=== PATIENT | female | born 1950 | race Caucasian/White ===

== ENCOUNTER 2016-11-08 01:25 | Inpatient (IN) | payer OTHER, MEDICAID ==
[~2016-11-08] VITALS: Ht 121.9 cm; Wt 66.0 kg
[2016-11-08] VITALS (18 sets, daily range): BP systolic 83–141; BP diastolic 38–63
[2016-11-08 02:31] LABS: BASOPHIL % 0.4 % (0-2); PLATELET COUNT 384 x10^3mcL (130-400)
[2016-11-08 02:32] LABS: RED CELL DISTRIBUTION WIDTH 21.5 % (11.5-14.5)
[2016-11-08 02:33] LABS: CALCIUM 8.7 mg/dL (8.5-10.1); CARBON DIOXIDE 30.5 mmol/L (21-32); POTASSIUM SERUM 4.3 mmol/L (3.5-5.1)
[2016-11-08 02:40] LABS: ALBUMIN 2.5 g/dL (3.4-5.0); BILIRUBIN TOTAL 0.31 mg/dL (0.20-1.00); TOTAL PROTEIN, SERUM 7.5 g/dL (6.4-8.2)
[2016-11-08 02:59] LABS: rbc morphology (normal/abnorm) ABNORMAL (NORMAL)
[2016-11-08 06:10] LABS: MAGNESIUM 2.4 mg/dL (1.8-2.4)
[2016-11-08 06:16] LABS: CHOLESTEROL/HDL RATIO 2.4
[2016-11-08 06:20] LABS: T3 TOTAL 0.82 ng/mL
[2016-11-08 06:43] LABS: FREE T4 1.84 ng/dL (0.76-1.46); FREE THYROXINE INDEX 3.8 ug/dL (1.4-4.5)
[2016-11-08 07:06] LABS: BASOPHIL % 0.6 % (0-2); PLATELET COUNT 367 x10^3mcL (130-400)
[2016-11-08 07:20] LABS: RED CELL DISTRIBUTION WIDTH 21.3 % (11.5-14.5)
[2016-11-08 07:28] LABS: UA SPECIFIC GRAVITY <=1.005 (1.005-1.035); microscopic required? YES; urine erythrocyte 1+ (NEGATIVE)
[2016-11-08 08:23] LABS: rbc morphology (normal/abnorm) ABNORMAL (NORMAL)
[2016-11-08] MEDS ORDERED: EPO10I IV (10:56)
[2016-11-08] MEDS ORDERED: FERROUS SULFAT325 M2 GT (10:57)
[2016-11-08] MEDS ORDERED: LEVEMIR100 U/M1 SC (10:57)
[2016-11-08] MEDS ORDERED: ASPIR 8181 MG GT (10:57)
[2016-11-08] MEDS ORDERED: XARELTO10 M1 GT (10:58)
[2016-11-08] MEDS ORDERED: KEPPRA500 MG GT (10:59)
[2016-11-08] MEDS ORDERED: OMEPRAZOLE40 M1 PO (10:59)
[2016-11-08] MEDS ORDERED: SYNTHROID0.1 MG PO (11:00)
[2016-11-08] MEDS ORDERED: METFORMIN HCL500 MG PO (11:00)
[2016-11-09] VITALS (17 sets, daily range): BP systolic 84–141; BP diastolic 40–88
[2016-11-09 07:01] LABS: BASOPHIL % 0.8 % (0-2); PLATELET COUNT 345 x10^3mcL (130-400)
[2016-11-09 07:07] LABS: CARBON DIOXIDE 25.1 mmol/L (21-32); CHLORIDE SERUM 107 mmol/L (98-107); CREATININE SERUM 0.8 mg/dL (0.6-1.0); GFR1 > 60 mL/min; GLUCOSE SERUM 124 mg/dL (74-106); MAGNESIUM 2.3 mg/dL (1.8-2.4); PHOSPHOROUS 3.3 mg/dL (2.5-4.9); POTASSIUM SERUM 3.8 mmol/L (3.5-5.1); SODIUM SERUM 139 mmol/L (136-145)
[2016-11-09 07:10] LABS: rbc morphology (normal/abnorm) ABNORMAL (NORMAL)
[2016-11-10] VITALS (19 sets, daily range): BP systolic 91–143; BP diastolic 35–73
[2016-11-10 05:02] LABS: BASOPHIL % 0.5 % (0-2); PLATELET COUNT 332 x10^3mcL (130-400)
[2016-11-10 05:04] LABS: RED CELL DISTRIBUTION WIDTH 22.1 % (11.5-14.5)
[2016-11-10 05:19] LABS: CALCIUM 8.2 mg/dL (8.5-10.1); CARBON DIOXIDE 24.7 mmol/L (21-32); CHLORIDE SERUM 107 mmol/L (98-107); CREATININE SERUM 0.9 mg/dL (0.6-1.0); GFR1 > 60 mL/min; GLUCOSE SERUM 241 mg/dL (74-106); MAGNESIUM 2.5 mg/dL (1.8-2.4); PHOSPHOROUS 3.4 mg/dL (2.5-4.9); POTASSIUM SERUM 4.5 mmol/L (3.5-5.1); SODIUM SERUM 138 mmol/L (136-145)
[2016-11-10 05:20] LABS: ovalocyte/elliptocyte 1+; rbc morphology (normal/abnorm) ABNORMAL (NORMAL)
[2016-11-10 13:33] LABS: PLATELET COUNT 295 x10^3mcL (130-400)
[2016-11-10 14:06] LABS: RED CELL DISTRIBUTION WIDTH 22.3 % (11.5-14.5)
[2016-11-10 14:16] LABS: BAND NEUTROPHIL 2 % (0-10); MONOCYTE 12 % (0-7); SEGMENTED NEUTROPHILS 72 % (37-75); rbc morphology (normal/abnorm) ABNORMAL (NORMAL)
[2016-11-10 15:15] LABS: BILIRUBIN TOTAL 0.3 mg/dL (0.20-1.00); CALCIUM 8.3 mg/dL (8.5-10.1); CARBON DIOXIDE 26.4 mmol/L (21-32); POTASSIUM SERUM 4.1 mmol/L (3.5-5.1)
[2016-11-10 15:24] LABS: ALBUMIN 2.1 g/dL (3.4-5.0); TOTAL PROTEIN, SERUM 6.1 g/dL (6.4-8.2)
[2016-11-10 16:03] LABS: IRON 74 ug/dL (50-170)
[2016-11-10 16:05] LABS: TOTAL IRON BINDING CAPACITY 205 ug/dL (250-450)
[2016-11-10 19:40] LABS: RED BLOOD CELLS 2.01 M/mm3 (4.10-5.10)
[2016-11-11] VITALS (24 sets, daily range): BP systolic 83–155; BP diastolic 32–82
[2016-11-11 05:13] LABS: BASOPHIL % 0.3 % (0-2); PLATELET COUNT 273 x10^3mcL (130-400); RED CELL DISTRIBUTION WIDTH 18.5 % (11.5-14.5)
[2016-11-11 06:18] LABS: CALCIUM 8.3 mg/dL (8.5-10.1); CARBON DIOXIDE 27.1 mmol/L (21-32); MAGNESIUM 2.3 mg/dL (1.8-2.4); PHOSPHOROUS 3.2 mg/dL (2.5-4.9); POTASSIUM SERUM 4.3 mmol/L (3.5-5.1)
[2016-11-12] VITALS (16 sets, daily range): BP systolic 86–157; BP diastolic 26–75
[2016-11-12 04:41] LABS: BASOPHIL % 0.7 % (0-2); PLATELET COUNT 254 x10^3mcL (130-400)
[2016-11-12 04:43] LABS: RED CELL DISTRIBUTION WIDTH 18.7 % (11.5-14.5)
[2016-11-12 05:00] LABS: CALCIUM 8.4 mg/dL (8.5-10.1); CARBON DIOXIDE 24.7 mmol/L (21-32); MAGNESIUM 2.4 mg/dL (1.8-2.4); PHOSPHOROUS 2.8 mg/dL (2.5-4.9); POTASSIUM SERUM 4.3 mmol/L (3.5-5.1)
[2016-11-13] VITALS (17 sets, daily range): BP systolic 96–132; BP diastolic 33–416
[2016-11-13 04:50] LABS: BASOPHIL % 0.9 % (0-2); PLATELET COUNT 232 x10^3mcL (130-400)
[2016-11-13 04:55] LABS: RED CELL DISTRIBUTION WIDTH 18.7 % (11.5-14.5)
[2016-11-13 04:59] LABS: CALCIUM 8.7 mg/dL (8.5-10.1); CARBON DIOXIDE 28.1 mmol/L (21-32); CREATININE SERUM 1.1 mg/dL (0.6-1.0); POTASSIUM SERUM 4.5 mmol/L (3.5-5.1)
[2016-11-14] VITALS (17 sets, daily range): BP systolic 96–135; BP diastolic 34–75
[2016-11-14 05:43] LABS: BASOPHIL % 0.2 % (0-2); PLATELET COUNT 222 x10^3mcL (130-400)
[2016-11-14 05:44] LABS: CALCIUM 8.7 mg/dL (8.5-10.1); CARBON DIOXIDE 26.1 mmol/L (21-32); CREATININE SERUM 1.1 mg/dL (0.6-1.0); POTASSIUM SERUM 4.5 mmol/L (3.5-5.1); RED CELL DISTRIBUTION WIDTH 19.3 % (11.5-14.5)
[2016-11-15] VITALS (18 sets, daily range): BP systolic 81–140; BP diastolic 31–90
[2016-11-15 05:39] LABS: BASOPHIL % 0.5 % (0-2); PLATELET COUNT 195 x10^3mcL (130-400)
[2016-11-15 05:40] LABS: RED CELL DISTRIBUTION WIDTH 19.4 % (11.5-14.5)
[2016-11-15 05:47] LABS: CALCIUM 8.8 mg/dL (8.5-10.1); CARBON DIOXIDE 26.2 mmol/L (21-32); CREATININE SERUM 1.2 mg/dL (0.6-1.0); MAGNESIUM 2.2 mg/dL (1.8-2.4); PHOSPHOROUS 4.9 mg/dL (2.5-4.9); POTASSIUM SERUM 4.9 mmol/L (3.5-5.1)
[2016-11-16] VITALS (19 sets, daily range): BP systolic 96–153; BP diastolic 28–101
[2016-11-16 05:44] LABS: BASOPHIL % 0.8 % (0-2); PLATELET COUNT 178 x10^3mcL (130-400)
[2016-11-16 05:50] LABS: CALCIUM 8.6 mg/dL (8.5-10.1); CARBON DIOXIDE 24.3 mmol/L (21-32); CREATININE SERUM 1.2 mg/dL (0.6-1.0); MAGNESIUM 2.2 mg/dL (1.8-2.4); PHOSPHOROUS 4.5 mg/dL (2.5-4.9); POTASSIUM SERUM 4.6 mmol/L (3.5-5.1)
[2016-11-17] VITALS (18 sets, daily range): BP systolic 78–132; BP diastolic 28–81
[2016-11-17 05:05] LABS: CALCIUM 8.6 mg/dL (8.5-10.1); CARBON DIOXIDE 24.9 mmol/L (21-32); CREATININE SERUM 1.2 mg/dL (0.6-1.0); MAGNESIUM 2.2 mg/dL (1.8-2.4); PHOSPHOROUS 3.9 mg/dL (2.5-4.9); POTASSIUM SERUM 4.8 mmol/L (3.5-5.1)
[2016-11-17 05:08] LABS: BASOPHIL % 0.8 % (0-2); PLATELET COUNT 156 x10^3mcL (130-400)
[2016-11-18] VITALS (17 sets, daily range): BP systolic 90–133; BP diastolic 34–89
[2016-11-18 05:58] LABS: BASOPHIL % 0.7 % (0-2); PLATELET COUNT 176 x10^3mcL (130-400)
[2016-11-18 06:04] LABS: RED CELL DISTRIBUTION WIDTH 20.7 % (11.5-14.5)
[2016-11-18 06:20] LABS: CALCIUM 8.6 mg/dL (8.5-10.1); CARBON DIOXIDE 22.6 mmol/L (21-32); MAGNESIUM 2.3 mg/dL (1.8-2.4); POTASSIUM SERUM 4.6 mmol/L (3.5-5.1)
[2016-11-19] VITALS (16 sets, daily range): BP systolic 82–139; BP diastolic 29–62
[2016-11-19 05:37] LABS: BASOPHIL % 0.8 % (0-2); PLATELET COUNT 158 x10^3mcL (130-400)
[2016-11-19 06:02] LABS: CALCIUM 8.8 mg/dL (8.5-10.1); MAGNESIUM 2.1 mg/dL (1.8-2.4); PHOSPHOROUS 3.1 mg/dL (2.5-4.9); POTASSIUM SERUM 4.5 mmol/L (3.5-5.1)
[2016-11-20] VITALS (12 sets, daily range): BP systolic 93–126; BP diastolic 37–51; Ht 121.9 cm; Wt 66.0 kg
[2016-11-20 00:51] LABS: UA SPECIFIC GRAVITY <=1.005 (1.005-1.035); microscopic required? YES; urine erythrocyte 1+ (NEGATIVE)
[2016-11-20 05:40] LABS: CALCIUM 8.4 mg/dL (8.5-10.1); CARBON DIOXIDE 24.6 mmol/L (21-32); CREATININE SERUM 1.1 mg/dL (0.6-1.0); PHOSPHOROUS 3.1 mg/dL (2.5-4.9); POTASSIUM SERUM 4.3 mmol/L (3.5-5.1)
[2016-11-20 05:55] LABS: PLATELET COUNT 138 x10^3mcL (130-400)
[2016-11-20] MEDS ORDERED: VANCOMYCIN PER PHARM MC (14:54)
[2016-11-20] MEDS ORDERED: MER500I IV (14:56)
[2016-11-20] MEDS ORDERED: VANCOMYCIN1 GM/200 M IV (14:56)
== END 2016-11-20 15:52 | DRG 207 ==
LOC: ED 01:25 → IC 04:07
PROVIDERS: Family Medicine; Internal Medicine Infectious Disease; Specialist; ADMIT Family Medicine
PROC: 5A1955Z Respiratory Ventilation, Greater than 96 Consecutive Hours (ICD-10-PCS; principal; 2016-11-08)
PROC: 05HN33Z Insertion of Infusion Device into Left Internal Jugular Vein, Percutaneous Approach (ICD-10-PCS; 2016-11-08)
PROC: B544ZZA Ultrasonography of Left Jugular Veins, Guidance (ICD-10-PCS; 2016-11-08)
DX: J69.0 Pneumonitis due to inhalation of food and vomit (principal); E43 Unspecified severe protein-calorie malnutrition; N17.0 Acute kidney failure with tubular necrosis; J96.10 Chronic respiratory failure, unspecified whether with hypoxia or hypercapnia; Z68.41 Body mass index [BMI] 40.0-44.9, adult; E87.3 Alkalosis; E87.1 Hypo-osmolality and hyponatremia; N39.0 Urinary tract infection, site not specified; K94.23 Gastrostomy malfunction; D68.69 Other thrombophilia; E11.51 Type 2 diabetes mellitus with diabetic peripheral angiopathy without gangrene; D64.9 Anemia, unspecified; E86.0 Dehydration; Q90.9 Down syndrome, unspecified; E87.8 Other disorders of electrolyte and fluid balance, not elsewhere classified; R31.9 Hematuria, unspecified; G40.909 Epilepsy, unspecified, not intractable, without status epilepticus; E03.9 Hypothyroidism, unspecified; Z86.718 Personal history of other venous thrombosis and embolism; Z79.4 Long term (current) use of insulin; Z79.84 Long term (current) use of oral hypoglycemic drugs
CPT/HCPCS: 36556; 80307; 82962; 83880; 84439; A4628; C9113; J0132; J0461; J0696; J0885-EC; J1200; J1642; J1644; J1815; J1940; J1956; J2060; J2185; J2250; J2270; J2405; J3010; J3370; J3490; J7030; J7040; J7050; J7620; J7626; P9016; Q0092; Q9967